=== PATIENT | female | born 1955 | race Caucasian/White ===

== ENCOUNTER 2019-08-08 08:27 | Day surgery (SDC) | payer MEDICARE, OTHER ==
[~2019-08-08] VITALS: Ht 160 cm; Wt 86.4 kg
[2019-08-08] MEDS ORDERED: ALEVE220 MG (09:02)
[2019-08-08] MEDS ORDERED: BUPR150ER PO (09:02)
--- NOTE | 2019-08-08 09:26 | NUR ---
08/08/19 0926 Litzy Canas V 1 FAILED IV IN RH, IV PLACED IN R AC. PT TOW.
== END 2019-08-08 10:30 | disposition home or self-care (01) ==
LOC: ORSCSDS 08:27
PROVIDERS: Internal Medicine Gastroenterology
PROC: 0DBN8ZX Excision of Sigmoid Colon, Via Natural or Artificial Opening Endoscopic, Diagnostic (ICD-10-PCS; principal; 2019-08-08 09:45)
PROC: 0DBK8ZX Excision of Ascending Colon, Via Natural or Artificial Opening Endoscopic, Diagnostic (ICD-10-PCS; principal; 2019-08-08 09:45)
DX: Z12.11 Encounter for screening for malignant neoplasm of colon (principal); K63.5 Polyp of colon; D12.2 Benign neoplasm of ascending colon; K64.8 Other hemorrhoids; E66.9 Obesity, unspecified; Z68.34 Body mass index [BMI] 34.0-34.9, adult; Z79.899 Other long term (current) drug therapy
CPT/HCPCS: 88305; J2704; J7120

== ENCOUNTER 2019-08-18 14:56 | Observation (INO) | payer MEDICARE, OTHER ==
[~2019-08-18] VITALS: Ht 165.1 cm; Wt 84.8 kg
[~2019-08-18 14:56] MED LIST: ALEVE220 MG; BUPR150ER PO
[2019-08-18 15:33] LABS: Source, Urine Clean Catch
[2019-08-18 15:36] LABS: Bilirubin, Urine Neg (Neg); Blood, Urine 3+ (Neg); Glucose Qualitative, Urine Neg (Neg); Ketones, Urine Neg (Neg); Leukocyte Esterase, Urine Neg (Neg); Nitrite, Urine Neg (Neg); Protein, Urine 1+ (Neg); Urobilinogen, Urine NORM (Normal)
[2019-08-18 15:38] LABS: BASOPHILS ABSOLUTE AUTO 0.09 K/mm3 (0.00-0.23); BASOPHILS PERCENT AUTO 1 % (0-2); EOSINOPHILS ABSOLUTE AUTO 0.08 K/mm3 (0.00-0.68); EOSINOPHILS PERCENT AUTO 1 % (0-6); Hematocrit 50.3 % (33.0-51.0); IMMATURE GRAN ABSOLUTE AUTO 0.04 K/mm3 (0.00-0.10); IMMATURE GRAN PERCENT AUTO 0 % (0-1); LYMPHOCYTES ABSOLUTE AUTO 2.49 K/mm3 (0.84-5.20); LYMPHOCYTES PERCENT AUTO 21 % (21-46); MONOCYTES PERCENT AUTO 7 % (4-13); Mean Corpuscular HGB Conc 31.8 g/dL (31.5-36.5); Mean Corpuscular Volume 91 fL (80-100); Mean Platelet Volume 10.9 fL (9.1-12.4); NEUTROPHILS ABSOLUTE AUTO 8.27 K/mm3 (1.96-9.15); NEUTROPHILS PERCENT AUTO 70 % (41-73); Platelet Count 241 K/mm3 (150-400); RDW Coefficient Variation 13.8 % (11.7-14.2); Red Blood Cell Count 5.51 M/mm3 (3.80-5.20); White Blood Cell Count 11.77 K/mm3 (4.00-11.30)
[2019-08-18 15:42] LABS: Appearance, Urine Clear (Clear); Color, Urine Pale Yellow (P-Yellow)
[2019-08-18 15:44] LABS: Bacteria Not Seen /hpf; Red Blood Cells, Urine Not Seen /hpf (0-2); Squamous Epithelial Cells Rare /hpf (Few); White Blood Cells, Urine 0-2 /hpf (0-5)
[2019-08-18 15:47] LABS: Alanine Aminotransfer (ALT/SGP 51 U/L (12-78); Albumin, Blood 3.9 g/dL (3.4-5.0); Albumin/Globulin Ratio 1.1 (0.8-1.8); Alk Phos 140 U/L (50-136); Anion Gap 7 mmol/L (6-16); Aspartate Aminotrans (AST/SGOT 29 U/L (12-37); Bilirubin, Total 0.3 mg/dL (0.1-1.0); Blood Urea Nitrogen 14 mg/dL (8-24); CO2, Blood 27 mmol/L (21-32); Calcium, Blood 9.6 mg/dL (8.5-10.1); Chloride, Blood 103 mmol/L (98-108); Creatinine, Blood 0.67 mg/dL (0.40-1.00); Globulin, Blood 3.6 g/dL (2.2-4.0); Glomerular Filtration Rate >60 (60-); Glucose, Blood 102 mg/dL (70-99); Potassium, Blood 4.1 mmol/L (3.5-5.5); Sodium, Blood 137 mmol/L (136-145); Total Protein, Blood 7.5 g/dL (6.4-8.2)
[2019-08-18 15:55] LABS: International Normalized Ratio 0.93
[2019-08-18 18:24] LABS: CHOL/HDL RATIO 3.7; Cholesterol 265 mg/dL (50-200); HDL Cholesterol 71 mg/dL (>39); LDL/HDL RATIO 2.3; Low Density Lipoprotein Chol 160 mg/dL (0-110); Triglycerides 169 mg/dL (30-160); Very Low Density Lipoprot Chol 33 mg/dL (6-32)
--- NOTE | 2019-08-18 20:00 | NUR ---
REPORT RECEIVED FROM [facility] RN. PT TRANSPORTED TO MEDICAL FLOOR VIA GURNEY, STOOD AND PIVOT TRANSFERRED SELF TO BED. NO S/S ACUTE DISTRESS NOTED. RESPS EVEN AND UNLABORED. VS STABLE. ORIENTED PT TO ROOM AND UNIT. DENIES NEEDS AT THIS TIME. CALL LIGHT, POSSESSIONS IN REACH, REMINDED TO CALL WITH NEEDS BEFORE GETTING OOB. INDICATED UNDERSTANDING. WILL CONTINUE TO MONITOR PT CONDITION.
[2019-08-19 04:56] LABS: BASOPHILS ABSOLUTE AUTO 0.11 K/mm3 (0.00-0.23); BASOPHILS PERCENT AUTO 1 % (0-2); EOSINOPHILS ABSOLUTE AUTO 0.16 K/mm3 (0.00-0.68); EOSINOPHILS PERCENT AUTO 2 % (0-6); Hematocrit 49.2 % (33.0-51.0); Hemoglobin 15.7 g/dL (11.5-16.0); IMMATURE GRAN ABSOLUTE AUTO 0.03 K/mm3 (0.00-0.10); IMMATURE GRAN PERCENT AUTO 0 % (0-1); LYMPHOCYTES ABSOLUTE AUTO 2.82 K/mm3 (0.84-5.20); LYMPHOCYTES PERCENT AUTO 29 % (21-46); MONOCYTES ABSOLUTE AUTO 0.67 K/mm3 (0.16-1.47); MONOCYTES PERCENT AUTO 7 % (4-13); Mean Corpuscular HGB 29.4 pg (26.0-34.0); Mean Corpuscular HGB Conc 31.9 g/dL (31.5-36.5); Mean Corpuscular Volume 92 fL (80-100); Mean Platelet Volume 10.7 fL (9.1-12.4); NEUTROPHILS ABSOLUTE AUTO 6.01 K/mm3 (1.96-9.15); NEUTROPHILS PERCENT AUTO 61 % (41-73); Platelet Count 233 K/mm3 (150-400); RDW Standard Deviation 47.2 fL (35.1-46.3); Red Blood Cell Count 5.34 M/mm3 (3.80-5.20)
[2019-08-19 05:18] LABS: Anion Gap 5 mmol/L (6-16); Blood Urea Nitrogen 15 mg/dL (8-24); Bun/Creatinine Ratio 21.4 (12.0-20.0); CO2, Blood 28 mmol/L (21-32); Chloride, Blood 106 mmol/L (98-108); Glomerular Filtration Rate >60 (60-); Glucose, Blood 105 mg/dL (70-99); Potassium, Blood 4.2 mmol/L (3.5-5.5); Sodium, Blood 139 mmol/L (136-145)
--- NOTE | 2019-08-19 07:16 | NUR ---
SHIFT SUMMARY PT HAS HAD NO ACUTE CHANGES IN CONDITION SINCE ARRIVAL TO MEDICAL FLOOR. SLEPT ON AND OFF T/O NIGHT. NEURO STATUS AND VS STABLE. PT HOPEFUL TO D/C HOME TODAY. VOICED CONCERNS R/T DX, AND HOW THAT WILL IMPACT HER FUTURE GOING FORWARD. REASSURED PT, EXPLAINING DISEASE PROCESS AND REINFORCING IMPORTANCE OF SMOKING CESSATION. ENCOURAGED PT TO VOICE CONCERNS AND QUESTIONS TO PHYSICIAN. INDICATED UNDERSTANDING. CALL LIGHT, POSSESSIONS IN REACH. REPORT GIVEN TO DAY RN.
[2019-08-19] MEDS ORDERED: ATORVASTATIN CA40 M1 PO (11:29)
[2019-08-19] MEDS ORDERED: ASPI81CH PO (11:29)
[2019-08-19] MEDS ORDERED: NICO21TP TOP (11:30)
--- NOTE | 2019-08-19 15:14 | NUR ---
PATIENT DISCHARGE: PATIENT DISCHARGED TO HOME THIS SHIFT. MEDICATION RECONCILIATION COMPLETED; MED LIST FAXED TO [facility]. DISCHARGE EDUCATION COMPLETED WITH PATIENT AND S/O. PATIENT REFUSED WHEELCHAIR TO EXIT; PATIENT ESCORTED TO EXIT BY [facility] AT 1303. PATIENT DEPARTED [facility] VIA PRIVATE AUTO.
== END 2019-08-19 12:52 | disposition home or self-care (01) ==
LOC: ER 14:56 → MEDS 14:57 → ENPENDDIS 08-19 11:16 → MEDS 08-19 12:52
PROVIDERS: Emergency Medicine; ADMIT Internal Medicine
DX: G45.9 Transient cerebral ischemic attack, unspecified (principal); R03.0 Elevated blood-pressure reading, without diagnosis of hypertension; F17.210 Nicotine dependence, cigarettes, uncomplicated; Z88.5 Allergy status to narcotic agent; Z79.1 Long term (current) use of non-steroidal anti-inflammatories (NSAID)
CPT/HCPCS: 36415; 70450; 70496; 70498; 80048; 80053; 80061; 81001; 85025; 85610; 85730; 93005; 93010; 93306; 96372; 97161; 99285-25; A9270-GY; G0378; J1650; J7030; Q9967

== ENCOUNTER 2020-09-26 18:51 | Emergency (ER) | payer MEDICARE, OTHER ==
[~2020-09-26] VITALS: Ht 160 cm; Wt 87.1 kg
[~2020-09-26 18:51] MED LIST changes: +ASPI81CH PO; +ATORVASTATIN CA40 M1 PO; +NICO21TP TOP
[2020-09-26 20:32] LABS: BASOPHILS ABSOLUTE AUTO 0.02 K/mm3 (0.00-0.23); BASOPHILS PERCENT AUTO 0 % (0-2); EOSINOPHILS ABSOLUTE AUTO 0.01 K/mm3 (0.00-0.68); EOSINOPHILS PERCENT AUTO 0 % (0-6); Hematocrit 42.7 % (33.0-51.0); Hemoglobin 14.3 g/dL (11.5-16.0); IMMATURE GRAN ABSOLUTE AUTO 0.03 K/mm3 (0.00-0.10); IMMATURE GRAN PERCENT AUTO 1 % (0-1); LYMPHOCYTES ABSOLUTE AUTO 1.19 K/mm3 (0.84-5.20); LYMPHOCYTES PERCENT AUTO 23 % (21-46); MONOCYTES ABSOLUTE AUTO 0.47 K/mm3 (0.16-1.47); MONOCYTES PERCENT AUTO 9 % (4-13); Mean Corpuscular HGB 29.2 pg (26.0-34.0); Mean Corpuscular HGB Conc 33.5 g/dL (31.5-36.5); Mean Corpuscular Volume 87 fL (80-100); Mean Platelet Volume 11.7 fL (9.1-12.4); NEUTROPHILS ABSOLUTE AUTO 3.41 K/mm3 (1.96-9.15); NEUTROPHILS PERCENT AUTO 66 % (41-73); Platelet Count 125 K/mm3 (150-400); RDW Coefficient Variation 13.9 % (11.7-14.2); RDW Standard Deviation 44.7 fL (35.1-46.3); Red Blood Cell Count 4.89 M/mm3 (3.80-5.20); White Blood Cell Count 5.13 K/mm3 (4.00-11.30)
[2020-09-26 20:41] LABS: Alanine Aminotransfer (ALT/SGP 59 U/L (12-78); Albumin, Blood 3.1 g/dL (3.4-5.0); Alk Phos 104 U/L (50-136); Anion Gap 9 mmol/L (6-16); Aspartate Aminotrans (AST/SGOT 47 U/L (12-37); Bilirubin, Total 0.4 mg/dL (0.1-1.0); Blood Urea Nitrogen 14 mg/dL (8-24); Bun/Creatinine Ratio 25.1 (12.0-20.0); CO2, Blood 26 mmol/L (21-32); Calcium, Blood 8.7 mg/dL (8.5-10.1); Chloride, Blood 97 mmol/L (98-108); Creatinine, Blood 0.56 mg/dL (0.40-1.00); Globulin, Blood 3.1 g/dL (2.2-4.0); Glomerular Filtration Rate >60 (60-); Glucose, Blood 112 mg/dL (70-99); Sodium, Blood 132 mmol/L (136-145); Total Protein, Blood 6.2 g/dL (6.4-8.2)
[2020-09-26 20:51] LABS: SARS-Cov-2 (COVID-19) PCR, MMC POSITIVE (NEGATIVE)
[2020-09-26] MEDS ORDERED: ONDA4ODT MM (22:09)
== END 2020-09-26 23:01 | disposition home or self-care (01) ==
LOC: ER 18:51
PROVIDERS: Physician Assistant
DX: R11.2 Nausea with vomiting, unspecified (principal); U07.1 COVID-19; R00.0 Tachycardia, unspecified; R09.02 Hypoxemia; E78.00 Pure hypercholesterolemia, unspecified; F17.200 Nicotine dependence, unspecified, uncomplicated; Z88.5 Allergy status to narcotic agent; Z79.82 Long term (current) use of aspirin
CPT/HCPCS: 36415; 80053; 83690; 85025; 93005; 93010; 96374; 96375; 99284-25; J1200; J2765; J7030; U0004

== ENCOUNTER 2021-11-20 10:13 | Emergency (ER) | payer MEDICARE, OTHER ==
[~2021-11-20] VITALS: Ht 160 cm; Wt 81.7 kg
[~2021-11-20 10:13] MED LIST changes: +CLOP75 PO; +DOCU100 PO; +FENOFIBRATE48 MG PO; +LOSA50 PO; +NICOTINE1 EAC1 TOP; +ONDA4ODT MM; +Ventolin/Prove6.7 GM INH
== END 2021-11-20 12:21 | disposition home or self-care (01) ==
LOC: ER 10:13
DX: M25.561 Pain in right knee (principal); M54.50 Low back pain, unspecified; F17.200 Nicotine dependence, unspecified, uncomplicated; Z88.5 Allergy status to narcotic agent; Z79.899 Other long term (current) drug therapy; Z79.82 Long term (current) use of aspirin; Z79.02 Long term (current) use of antithrombotics/antiplatelets; Z86.73 Personal history of transient ischemic attack (TIA), and cerebral infarction without residual deficits
CPT/HCPCS: 73562-RT; 96372; 99283-25; A9270; J1885

== ENCOUNTER → 2022-05-22 | Outpatient (CLI) | payer MEDICARE, OTHER | END | disposition home or self-care (01) | LOC: LAB 17:52 → LAB SHORT 17:52 | DX: R30.0 Dysuria (principal) | CPT/HCPCS: 87077; 87086; 87186 ==